=== PATIENT | male | born 1945 | race Caucasian/White ===

== ENCOUNTER 2021-08-16 04:44 | Observation (INO) | payer MEDICARE ==
[2021-08-16 04:51] VITALS: RESP 18
[2021-08-16 05:12] LABS: Basophils % (A) 0 %; Eosinophils # (A) 0.1 k/uL (0-0.7); Eosinophils % (A) 1 %; HCT 41.2 % (39.0-53.0); HGB 13.8 gm/dL (13.0-17.5); Lymphocytes # (A) 1.2 k/uL (1.0-4.8); Lymphocytes % (A) 12 %; MCH 31.2 pg (25.0-35.0); MCHC 33.6 g/dL (31.0-37.0); MCV 92.9 fL (80.0-100.0); Mean Platelet Volume 7.1; Monocytes # (A) 0.6 k/uL (0-1.0); Monocytes % (A) 6 %; Neutrophils # (A) 8.1 k/uL (1.3-7.7); Neutrophils % (A) 78 %; Platelet Count 269 k/uL (150-450); RBC 4.44 m/uL (4.30-5.90); RDW 12.8 % (11.5-15.5); WBC 10.4 k/uL (3.8-10.6)
[2021-08-16 05:23] LABS: Partial Thromboplastin Time 23.9 sec (22.0-30.0); Prothrombin Time 10.4 sec (9.0-12.0)
[2021-08-16 05:34] LABS: ALT 20 U/L (4-49); African American GFR (CKD) >90 (>60 ml/min/1.73 sqM); Albumin 3.9 g/dL (3.5-5.0); Anion Gap 9 mmol/L; Blood Urea Nitrogen 22 mg/dL (9-20); Calcium 9.3 mg/dL (8.4-10.2); Carbon Dioxide 24 mmol/L (22-30); Chloride 106 mmol/L (98-107); Glucose 155 mg/dL (74-99); Lipase 482 U/L (23-300); Non-African American GFR(CKD) 84 (>60 ml/min/1.73 sqM); Sodium 139 mmol/L (137-145); Total Bilirubin 0.7 mg/dL (0.2-1.3); Total Protein 6.2 g/dL (6.3-8.2)
[2021-08-16 05:47] LABS: Potassium 4.4 mmol/L (3.5-5.1)
[2021-08-16 05:48] LABS: AST 24 U/L (17-59); Alkaline Phosphatase 42 U/L (38-126)
--- NOTE | 2021-08-16 05:51 | ED ---
Chest Pain HPI - General Chief Complaint: Chest Pain Stated Complaint: Chest Pain Time Seen by Provider: 08/16/21 04:53 Source: patient, RN notes reviewed, old records reviewed Mode of arrival: ambulatory Limitations: no limitations - History of Present Illness Initial Comments: This is a 75-year-old male to the emergency department for evaluation. Patient presents today for chest pain left-sided chest pain left-sided back pain. Patient has no fevers no cough or congestion. Patient does have anterior central chest pain left-sided jaw pain pain with a did drop patient awoke with symptoms today. Patient did have a AR and stent placed about 5-6 months ago. Has had no issues since with no chest pain patient is currently still taking Plavix. [place] fine before bed last night no recent fatigue or illness MD Complaint: chest pain -: hour(s) Onset: during rest, awoke with symptoms Pain Location: substernal, left chest Pain Radiation: back, jaw/teeth Severity: moderate Severity scale (1-10): 6 Quality: tightness, sharp Consistency: intermittent, now resolved Improves With: nothing Worsens With: nothing Context: other (stents 5 months ago) Anginal Symptoms: nausea Other Symptoms: other (none) Treatments Prior to Arrival: none - Related Data Allergies Allergy/AdvReac Type Severity Reaction Status Date / Time No Known Allergies Allergy Verified 08/16/21 04:51 Review of Systems ROS Statement: Those systems with pertinent positive or pertinent negative responses have been documented in the HPI. ROS Other: All systems not noted in ROS Statement are negative. EKG Findings - EKG Comments: EKG Findings:: EKG shows sinus rhythm 71 AL 140 QRS 78 QTc 410. Repeat. EKG shows sinus rhythm 67 AL 138 QRS 78 QTc 420 Past Medical History Past Medical History: Diabetes Mellitus, Hypertension, Myocardial Infarction (AR) History of Any Multi-Drug Resistant Organisms: None Reported Past Surgical History: Heart Catheterization With Stent, Orthopedic Surgery Past Psychological History: No Psychological Hx Reported Smoking Status: Never smoker Past Alcohol Use History: None Reported Past Drug Use History: None Reported General Exam Limitations: no limitations General appearance: alert, in no apparent distress Head exam: Present: atraumatic, normocephalic, normal inspection Eye exam: Present: normal appearance, PERRL, EOMI. Absent: scleral icterus, conjunctival injection, periorbital swelling ENT exam: Present: normal exam, mucous membranes moist Neck exam: Present: normal inspection. Absent: tenderness, meningismus, lymphadenopathy Respiratory exam: Present: normal lung sounds bilaterally. Absent: respiratory distress, wheezes, rales, rhonchi, stridor Cardiovascular Exam: Present: regular rate, normal rhythm, normal heart sounds. Absent: systolic murmur, diastolic murmur, rubs, gallop, clicks GI/Abdominal exam: Present: soft, normal bowel sounds. Absent: distended, tenderness, guarding, rebound, rigid Extremities exam: Present: normal inspection, full ROM, normal capillary refill. Absent: tenderness, pedal edema, joint swelling, calf tenderness Back exam: Present: normal inspection Neurological exam: Present: alert, oriented X3, CN II-XII intact Psychiatric exam: Present: normal affect, normal mood Skin exam: Present: warm, dry, intact, normal color. Absent: rash Course Vital Signs 08/16/21 08/16/21 04:49 05:03 Temperature 97.8 F Pulse Rate 75 72 Respiratory 18 18 Rate Blood Pressure 162/71 169/85 O2 Sat by Pulse 98 97 Oximetry - Reevaluation(s) Reevaluation #1: 08/16/21 05:51 medical record is reviewed Reevaluation #2: 08/16/21 06:04 Patient still has some occasional symptoms here in the emergency department Reevaluation #3: 08/16/21 06:05 Patient is informed of results and questions have been answered - Consultations Consultation #1: Spoke with Dr. Mahan who will admit this patient Chest Pain MDM - MDM 75 male to the emergency department admitted for chest pain, chest pain observation with history of recent AR and stent placement. Patient be admitted for cardiac observation Critical Care Time Critical Care Time: Yes Total Critical Care Time: 31 Disposition Clinical Impression: Chest pain, ACS (acute coronary syndrome) Disposition: ADMITTED IP TO THIS HOSP Condition: Fair Is patient prescribed a controlled substance at d/c from ED?: No Referrals: Loyd Daley MD [Primary Care Provider] - 1-2 days
--- NOTE | 2021-08-16 05:53 | XR ---
EXAM: XR Chest, 2 Views CLINICAL HISTORY: ITS.REASON XR Reason: Chest Pain TECHNIQUE: Frontal and lateral views of the chest. COMPARISON: No relevant prior studies available. FINDINGS: Lungs: Unremarkable. No consolidation. Pleural space: Unremarkable. No pneumothorax. Heart: Unremarkable. No cardiomegaly. Mediastinum: Unremarkable. Bones/joints: Degenerative changes of the thoracic spine. IMPRESSION: No evidence of acute cardiopulmonary disease.
[2021-08-16] MEDS ORDERED: HEPARIN SODIUM 1,000 UN/ML (10ML VL) IV ONE (06:01)
[2021-08-16] MEDS ORDERED: MORPHINE SULFATE 4 MG/ML SYRINGE IV PRN (06:01)
[2021-08-16] MEDS ORDERED: ASPIRIN 81 MG PO STA (06:01)
[2021-08-16] MEDS ORDERED: NITROGLYCERIN SL TABS 0.4 MG TAB SUBLINGUAL PRN (06:01)
[2021-08-16] MEDS ORDERED: HEPARIN SOD,PORK IN 0.45% NACL 25,000 UNIT in 0.45% NACL 1 250ML.BAG IV SCH (06:15)
[2021-08-16] MEDS ORDERED: lisinopriL 20 MG TAB PO SCH (09:00)
[2021-08-16] MEDS ORDERED: CLOPIDOGREL 75 MG TAB PO SCH (09:00)
[2021-08-16] MEDS ORDERED: amLODIPine 5 MG TAB PO SCH (09:00)
[2021-08-16] MEDS ORDERED: carvediloL 6.25 MG TAB PO SCH (09:00)
[2021-08-16 09:56] VITALS: BP 156/62; PULSE 77; TEMP 98.1
--- NOTE | 2021-08-16 10:22 | ECHOF ---
Referral Reason:cp MEASUREMENTS -------- HEIGHT: 170.2 cm WEIGHT: 74.8 kg BP: RVIDd: 3.7 cm (< 3.3) IVSd: 1.3 cm (0.6 - 1.1) LVIDd: 3.9 cm (3.9 - 5.3) LVPWd: 1.2 cm (0.6 - 1.1) IVSs: 1.8 cm LVIDs: 2.6 cm LVPWs: 1.8 cm LA Diam: 3.8 cm (2.7 - 3.8) LAESV Index (A-L): 27.63 ml/m Ao Diam: 3.1 cm (2.0 - 3.7) AV Cusp: 1.7 cm (1.5 - 2.6) MV EXCURSION: 12.108 mm (> 18.000) MV EF SLOPE: 44 mm/s (70 - 150) EPSS: 0.6 cm MV E Ok: 0.96 m/s MV DecT: 237 ms MV A Ok: 1.12 m/s MV E/A Ratio: 0.86 RAP: 5.00 mmHg RVSP: 24.85 mmHg FINDINGS -------- Sinus rhythm. This was a technically adequate study. The left ventricular size is normal. There is mild concentric left ventricular hypertrophy. Overa ll left ventricular systolic function is normal with, an EF between 60 - 65 %. The right ventricle is mildly enlarged. Normal LA size by volume 22+/-6 ml/m2. The right atrium is normal in size. Interatrial and interventricular septum intact. There is mild aortic valve sclerosis. There is trace mitral regurgitation. Mild tricuspid regurgitation present. Right ventricular systolic pressure is normal at < 35 mmHg. The pulmonic valve is normal. The aortic root size is normal. Normal inferior vena cava with normal inspiratory collapse consistent with estimated right atrial pre ssure of 5 mmHg. There is no pericardial effusion. CONCLUSIONS -------- 1. The left ventricular size is normal. 2. There is mild concentric left ventricular hypertrophy. 3. Overall left ventricular systolic function is normal with, an EF between 60 - 65 %. 4. The right ventricle is mildly enlarged. 5. There is mild aortic valve sclerosis. 6. There is trace mitral regurgitation. 7. Mild tricuspid regurgitation present. 8. There is no pericardial effusion. [employer]: AGUEDA Viramontes
[2021-08-16 11:06] LABS: Glucose,Whole Blood 142 mg/dL (75-99)
--- NOTE | 2021-08-16 11:53 | P.CRDCN ---
History of Present Illness Consult date: 08/16/21 History of present illness: HISTORY OF PRESENT ILLNESS: This is a 75-year-old male with a past medical history significant for hypertension, hyperlipidemia, diabetes, and coronary artery disease. Patient states he had 3 stents placed in [place] in April 2021. Patient follows in the office with Dr. Morris. We have been asked to see the patient in consultation for this chest pain. Patient examined at the bedside. Patient states he woke up this morning with chest pain around 1 AM. He states that he was in the middle of his chest. He also reports some discomfort in his neck. He states the pain was worse when he took a deep breath. He also reported some mild discomfort with chest palpation however that has resolved. He also reports having a sore throat this morning which he thought was unusual. Patient states his symptoms do not feel like his prior CT last year. At the time of my examination, the patient denies chest pain or pressure. He denies shortness of breath. EKG reveals sinus mechanism with nonspecific ST-T wave changes. No previous EKG available for comparison Chest xray negative for acute process Laboratory data: WBC 10.4. Hemoglobin 13.8. Platelet count 269. D-dimer 0.37. Sodium 139. Potassium 4.4. BUN 22. Creatinine 0.5. Troponin negative 2. ProBNP 205. Current home cardiac medications include aspirin 81 mg daily, lisinopril 20 mg daily, carvedilol 6.25 mg twice a day, Plavix 75 mg daily, amlodipine 5 mg daily, and atorvastatin 80 mg at night Echocardiogram completed revealing ejection fraction 60-65%, trace mitral regurgitation and mild tricuspid regurgitation Patient underwent a stress test in May 2021 at cardiology office which was negative for ischemia at 80% of his maximum heart rate. Patient did not reach his target heart rate. REVIEW OF SYSTEMS: At the time of my exam: CONSTITUTIONAL: Denies fever or chills. HEENT: Denies blurred vision, vision changes, or eye pain. Denies hemoptysis CARDIOVASCULAR: Denies chest pain. Denies orthopnea. Denies PND. Denies palpitations RESPIRATORY: Denies shortness of breath. GASTROINTESTINAL: Denies abdominal pain. Denies nausea or vomiting. HEMATOLOGIC: Denies bleeding disorders. GENITOURINARY: Denies any blood in urine. SKIN: Denies pruitis. Denies rash. PHYSICAL EXAM: VITAL SIGNS: Reviewed. GENERAL: Well-developed in no acute distress. HEENT: Head is normocephalic. Pupils are equal, round. Sclerae anicteric. Mucous membranes of the mouth are moist. Neck supple. No JVD or thyromegaly LUNGS: Respirations even and unlabored. Lungs essentially clear to auscultation bilaterally. HEART: Regular rate and rhythm. S1 and S2 heard. ABDOMEN: Soft. Nondistended. Nontender. EXTREMITIES: Normal range of motion. No clubbing or cyanosis. Peripheral pulses intact. No lower extremity edema NEUROLOGIC: Awake and alert. Oriented x 3. ASSESSMENT: Chest pain, atypical, pleuritic, troponin negative 2 Coronary artery disease with previous stenting, April 2021 in [place], exact details unknown Hypertension Hyperlipidemia Diabetes PLAN: An acute coronary event has been ruled out 2D echo obtained and reviewed Discontinue IV heparin Resume home cardiac medications Patient may be discharged home today and follow up with Dr. Morris Nurse practitioner note has been reviewed by physician. Signing provider agrees with the documented findings, assessment, and plan of care. Past Medical History Past Medical History: Diabetes Mellitus, Hypertension, Myocardial Infarction (CT) Last Myocardial Infarction Date:: may 05 2021 History of Any Multi-Drug Resistant Organisms: None Reported Past Surgical History: Heart Catheterization With Stent, Orthopedic Surgery Date of Last Stent Placement:: may 05 2021 Past Psychological History: No Psychological Hx Reported Smoking Status: Never smoker Past Alcohol Use History: None Reported Past Drug Use History: None Reported Medications and Allergies Home Medications Medication Instructions Recorded Confirmed Type 5Hydroxytryptophan(Oxitriptan) 200 mg PO DAILY 08/16/21 08/16/21 History [5-Htp] Ascorbic Acid [Vitamin C] 500 mg PO DAILY 08/16/21 08/16/21 History Aspirin EC [Ecotrin Low Dose] 81 mg PO DAILY 08/16/21 08/16/21 History Atorvastatin [Lipitor] 80 mg PO HS 08/16/21 08/16/21 History Biotin 5 mg PO DAILY 08/16/21 08/16/21 History Calcium Carb/Mag Ox/Zinc Sulf 1 tab PO DAILY 08/16/21 08/16/21 History [Tnr-Mde-Gnzv 334-134-5 mg Tab] Cholecalciferol [Vitamin D3 (125 250 mcg PO DAILY 08/16/21 08/16/21 History Mcg = 5000 Iu)] Clopidogrel [Plavix] 75 mg PO DAILY 08/16/21 08/16/21 History Cyanocobalamin (Vitamin B-12) 1,000 mcg PO DAILY 08/16/21 08/16/21 History [Vitamin B-12] Glucosamine-Chondr 500-400Mg 2 tab PO DAILY 08/16/21 08/16/21 History Krill Oil 500 mg PO DAILY 08/16/21 08/16/21 History Melatonin 5 mg PO HS 08/16/21 08/16/21 History Montelukast [Singulair] 10 mg PO HS 08/16/21 08/16/21 History Multivitamins, Thera [Multivitamin 1 tab PO DAILY 08/16/21 08/16/21 History (formulary)] [place] 3-6-9 1 cap PO DAILY 08/16/21 08/16/21 History Pumpkin Seed Oil 1 tab PO HS 08/16/21 08/16/21 History Vit C/E/Zn/Coppr/Lutein/Zeaxan 1 cap PO DAILY 08/16/21 08/16/21 History [Preservision Areds 2 Softgel] Vitamin B Complex 1 cap PO DAILY 08/16/21 08/16/21 History Zinc 50 mg PO DAILY 08/16/21 08/16/21 History amLODIPine [Norvasc] 5 mg PO DAILY 08/16/21 08/16/21 History carvediloL [Coreg] 6.25 mg PO BID 08/16/21 08/16/21 History lisinopriL [Prinivil] 20 mg PO DAILY 08/16/21 08/16/21 History metFORMIN HCL ER [Glucophage XR] 1,000 mg PO BID 08/16/21 08/16/21 History Allergies Allergy/AdvReac Type Severity Reaction Status Date / Time No Known Allergies Allergy Verified 08/16/21 06:39 Physical Exam Vitals: Vital Signs Temp Pulse Pulse Resp BP BP Pulse Ox 08/16/21 08:48 98.1 F 77 18 156/62 96 08/16/21 06:33 74 18 163/81 96 08/16/21 05:03 72 18 169/85 97 08/16/21 04:49 97.8 F 75 18 162/71 98 Intake and Output 08/15/21 08/16/21 08/16/21 22:59 06:59 14:59 Other: Weight 74.843 kg Results 08/16/21 05:05 08/16/21 04:54 Cardiac Enzymes 08/16/21 08/16/21 08/16/21 Range/Units 04:54 04:54 07:54 AST 24 (17-59) U/L Troponin I <0.012 <0.012 (0.000-0.034) ng/mL Coagulation 08/16/21 Range/Units 04:54 PT 10.4 (9.0-12.0) sec APTT 23.9 (22.0-30.0) sec CBC 08/16/21 Range/Units 05:05 WBC 10.4 (3.8-10.6) k/uL RBC 4.44 (4.30-5.90) m/uL Hgb 13.8 (13.0-17.5) gm/dL Hct 41.2 (39.0-53.0) % Plt Count 269 (150-450) k/uL Comprehensive Metabolic Panel 08/16/21 Range/Units 04:54 Sodium 139 (137-145) mmol/L Potassium 4.4 (3.5-5.1) mmol/L Chloride 106 (98-107) mmol/L Carbon Dioxide 24 (22-30) mmol/L BUN 22 H (9-20) mg/dL Creatinine 0.85 (0.66-1.25) mg/dL Glucose 155 H (74-99) mg/dL Calcium 9.3 (8.4-10.2) mg/dL AST 24 (17-59) U/L ALT 20 (4-49) U/L Alkaline Phosphatase 42 (38-126) U/L Total Protein 6.2 L (6.3-8.2) g/dL Albumin 3.9 (3.5-5.0) g/dL Current Medications Generic Name Dose Route Start Last Admin Trade Name Freq PRN Reason Stop Dose Admin Amlodipine Besylate 5 mg 08/16/21 09:00 08/16/21 09:38 Amlodipine 5 Mg Tab PO 5 mg DAILY [facility] Administration Aspirin 81 mg 08/17/21 09:00 Aspirin 81 Mg PO DAILY [facility] Atorvastatin Calcium 80 mg 08/16/21 21:00 Atorvastatin 80 Mg Tab PO [facility] Carvedilol 6.25 mg 08/16/21 09:00 08/16/21 09:38 Carvedilol 6.25 Mg Tab PO 6.25 mg AC-BID [facility] Administration Clopidogrel Bisulfate 75 mg 08/16/21 09:00 08/16/21 09:38 Clopidogrel 75 Mg Tab PO 75 mg DAILY [facility] Administration Insulin Aspart 0 unit 08/16/21 12:30 Insulin Aspart (Novolog) 100 Unit/Ml Vial SQ ACHS [facility] Protocol Lisinopril 20 mg 08/16/21 09:00 08/16/21 09:38 Lisinopril 20 Mg Tab PO 20 mg DAILY [facility] Administration Melatonin 5 mg 08/16/21 21:00 Melatonin 5 Mg Tablet PO HS [facility] Montelukast Sodium 10 mg 08/16/21 21:00 Montelukast 10 Mg Tab PO HS [facility] Morphine Sulfate 4 mg 08/16/21 06:01 Morphine Sulfate 4 Mg/Ml Syringe IV Q4HR PRN Chest Pain Multivitamins/Minerals 1 each 08/17/21 09:00 Vit A,C & S-Fhhxpx-Spxwrljq 1 Each Tab PO DAILY [facility] Nitroglycerin 0.4 mg 08/16/21 06:01 Nitroglycerin Sl Tabs 0.4 Mg Tab SUBLINGUAL Q5M PRN Chest Pain Intake and Output 08/15/21 08/16/21 08/16/21 22:59 06:59 14:59 Other: Weight 74.843 kg 08/16/21 05:05 08/16/21 04:54
[2021-08-16] MEDS ORDERED: INSULIN ASPART (NovoLOG) 100 UNIT/ML VIAL SQ SCH (12:30)
--- NOTE | 2021-08-16 13:42 | P.HPIM ---
History of Present Illness H&P Date: 08/16/21 HISTORY AND PHYSICAL AND DISCHARGE SUMMARY: HISTORY OF PRESENT ILLNESS This is a 75-year-old male patient of Dr. Daley with past medical history of coronary artery disease with previous stent and VT, hyperlipidemia, hypertension, diabetes mellitus type 2, seasonal ALLERGIES. In April 2021, patient was diagnosed with a myocardial infarction and had 3 stents placed in [place] while he was visiting his daughter. He has subsequently followed up with Dr. Raquel Morris in the office. Patient presented to [facility] emergency center with left-sided chest pain that started about 1 AM while he was sleeping. When he woke up in the morning he was feeling a little sore throat and use a throat lozenge or enterococcus zinc and that sore throat went away. He denies any history of GERD and then even before he had lasagna for dinner and at 4 PM he al so drank some fast for the first time. No cough or congestion. Chest pain is reproducible and is worse when laying down. Chest pain improves when he sitting or standing. Patient was afebrile, heart rate 75, blood pressure 162/71, pulse ox 90% on room air. EKG was a sinus rhythm with nonspecific ST changes. CBC was unremarkable. D-dimer 0.37. Electrolytes normal. BUN 22 and creatinine 0.85. Blood sugar 155. Troponins negative on 2 draws. Liver function tests were normal. Magnesium 2.0, potassium 4.4. ProBNP 205. Lipase 482, rotavirus PCR not detected. Chest x-ray reveals no acute cardio pulmonary disease. Patient was started on heparin drip, patient was seen by cardiology and rec ommended echo, cleared for discharge home. Patient will be discharged home today in stable condition. Echocardiogram reveals mild concentric left ventricular hypertrophy, EF 60-65%, trace mitral regurgitation, mild aortic valve sclerosis. Mild tricuspid regurgitation. REVIEW OF SYSTEMS Constitutional: No fever, no chills, no night sweats. No weight change. No weakness, fatigue or lethargy. No daytime sleepiness. EENT: No headache. No blurred vision or double vision, no loss of vision. No loss of Hearing, no ringing in the ears, no dizziness. No nasal drainage or congestion. No epistaxis. No sore throat. Lungs: No shortness of breath, cough, no sputum production. No wheezing. Cardiovascular: Reports chest pain, no lower extremity edema. No palpitations. No paroxysmal nocturnal dyspnea. No orthopnea. No lightheadedness or dizziness. No syncopal episodes. Abdominal: No abdominal pain. No nausea, vomiting. No diarrhea. No constipation. No bloody or tarry stools. No loss of appetite. Genitourinary: No dysuria, increased frequency, urgency. No urinary retention. Musculoskeletal: No myalgias. No muscle weakness, no gait dysfunction, no fr equent falls. No back pain. No neck pain. Integumentary: No wounds, no lesions. No rash or pruritus. No unusual bruising. No change in hair or nails. Neurologic: No aphasia. No facial droop. No change in mentation. No head injury. No headache. No paralysis. No paresthesia. Psychiatric: No depression. No anxiety. No mood swings. Endocrine: No abnormal blood sugars. No weight change. No excessive sweating or thirst. No cold intolerance. SOCIAL HISTORY Patient is a lifelong nonsmoker, no alcohol abuse, marijuana use or illicit drug use. He lives at home with his . FAMILY HISTORY Mother is alive at age 98 with history of diabetes and hypertension, father at age 70 from aneursym with history of CAD and CABG. He has one sister with possible DM. Patient does not have brothers. He has one daughter with historyof brain aneurysm and kidney stones. He has 2 sons with no major medical problems. PHYSICAL EXAMINATION Gen: This is a 75-year-old male. He is resting in bed appears to be comfortable and in no acute distress. HEENT: Head is atraumatic, normocephalic. Pupils equal, round. Sclerae is anicteric. NECK: Supple. No JVD. No lymphadenopathy. No thyromegaly. LUNGS: Clear to auscultation. No wheezes or rhonchi. No intercostal retractions. Has a chest wall tenderness. HEART: Regular rate and rhythm. No murmur. ABDOMEN: Soft. Bowel sounds are present. No masses. No tenderness. EXTREMITIES: No pedal edema. No calf tenderness. NEUROLOGICAL: Patient is awake, alert and oriented x3. Cranial nerves 2 through 12 are grossly intact. ASSESSMENT AND PLAN 1. Chest pain with negative troponins, possible gastroesophageal reflux disease, possible bronchitis. Cardiology consult appreciated. Echocardiogram as above. Continue aspirin 81 mg daily, atorvastatin 80 mg at bedtime, Plavix 75 mg daily. 2. Hypertension. Continue lisinopril 20 mg daily. 3. Hyperlipidemia. Continue atorvastatin. 4. Previous myocardial infarction and 3 stent placement in April 2021. 5. Diabetes mellitus type 2. Hold metformin. Patient will be placed on NovoL og scale before meals and at bedtime. 6. COVID-19 testing negative. Patient has been hospitalized during a pandemic. Patient placed as observation status. DISCHARGE PLAN home. Discharge Medication List 5Hydroxytryptophan(Oxitriptan) [5-Htp] 200 mg PO DAILY 08/16/21 [History] Ascorbic Acid [Vitamin C] 500 mg PO DAILY 08/16/21 [History] Aspirin EC [Ecotrin Low Dose] 81 mg PO DAILY 08/16/21 [History] Atorvastatin [Lipitor] 80 mg PO HS 08/16/21 [History] Biotin 5 mg PO DAILY 08/16/21 [History] Calcium Carb/Mag Ox/Zinc Sulf [Esg-Kig-Ngqg 334-134-5 mg Tab] 1 tab PO DAILY 08/16/21 [History] Cholecalciferol [Vitamin D3 (125 Mcg = 5000 Iu)] 250 mcg PO DAILY 08/16/21 [History] Clopidogrel [Plavix] 75 mg PO DAILY 08/16/21 [History] Cyanocobalamin (Vitamin B-12) [Vitamin B-12] 1,000 mcg PO DAILY 08/16/21 [History] Glucosamine-Chondr 500-400Mg 2 tab PO DAILY 08/16/21 [History] Krill Oil 500 mg PO DAILY 08/16/21 [History] Melatonin 5 mg PO HS 08/16/21 [History] Montelukast [Singulair] 10 mg PO HS 08/16/21 [History] Multivitamins, Thera [Multivitamin (formulary)] 1 tab PO DAILY 08/16/21 [History] Britton 3-6-9 1 cap PO DAILY 08/16/21 [History] Pantoprazole [Protonix] 40 mg PO HS #30 tab 08/16/21 [Rx] Pumpkin Seed Oil 1 tab PO HS 08/16/21 [History] Vit C/E/Zn/Coppr/Lutein/Zeaxan [Preservision Areds 2 Softgel] 1 cap PO DAILY 08/16/21 [History] Vitamin B Complex 1 cap PO DAILY 08/16/21 [History] Zinc 50 mg PO DAILY 08/16/21 [History] amLODIPine [Norvasc] 5 mg PO DAILY 08/16/21 [History] carvediloL [Coreg] 6.25 mg PO BID 08/16/21 [History] lisinopriL [Prinivil] 20 mg PO DAILY 08/16/21 [History] metFORMIN HCL ER [Glucophage XR] 1,000 mg PO BID 08/16/21 [History] predniSONE [Deltasone] 40 mg PO DAILY #14 tab 08/16/21 [Rx] Greater than 35 minutes was utilized and coordinating patient's discharge. Impression and plan of care have been directed as dictated by the signing physician. Kellen Grant nurse practitioner acting as scribe for signing physician. Past Medical History Past Medical History: Diabetes Mellitus, Hypertension, Myocardial Infarction (VT) History of Any Multi-Drug Resistant Organisms: None Reported Past Surgical History: Heart Catheterization With Stent, Orthopedic Surgery Past Psychological History: No Psychological Hx Reported Smoking Status: Never smoker Past Alcohol Use History: None Reported Past Drug Use History: None Reported Medications and Allergies Home Medications Medication Instructions Recorded Confirmed Type 5Hydroxytryptophan(Oxitriptan) 200 mg PO DAILY 08/16/21 08/16/21 History [5-Htp] Ascorbic Acid [Vitamin C] 500 mg PO DAILY 08/16/21 08/16/21 History Aspirin EC [Ecotrin Low Dose] 81 mg PO DAILY 08/16/21 08/16/21 History Atorvastatin [Lipitor] 80 mg PO HS 08/16/21 08/16/21 History Biotin 5 mg PO DAILY 08/16/21 08/16/21 History Calcium Carb/Mag Ox/Zinc Sulf 1 tab PO DAILY 08/16/21 08/16/21 History [Rqp-Aqb-Ojko 334-134-5 mg Tab] Cholecalciferol [Vitamin D3 (125 250 mcg PO DAILY 08/16/21 08/16/21 History Mcg = 5000 Iu)] Clopidogrel [Plavix] 75 mg PO DAILY 08/16/21 08/16/21 History Cyanocobalamin (Vitamin B-12) 1,000 mcg PO DAILY 08/16/21 08/16/21 History [Vitamin B-12] Glucosamine-Chondr 500-400Mg 2 tab PO DAILY 08/16/21 08/16/21 History Krill Oil 500 mg PO DAILY 08/16/21 08/16/21 History Melatonin 5 mg PO HS 08/16/21 08/16/21 History Montelukast [Singulair] 10 mg PO HS 08/16/21 08/16/21 History Multivitamins, Thera [Multivitamin 1 tab PO DAILY 08/16/21 08/16/21 History (formulary)] Britton 3-6-9 1 cap PO DAILY 08/16/21 08/16/21 History Pantoprazole [Protonix] 40 mg PO HS #30 tab 08/16/21 Rx Pumpkin Seed Oil 1 tab PO HS 08/16/21 08/16/21 History Vit C/E/Zn/Coppr/Lutein/Zeaxan 1 cap PO DAILY 08/16/21 08/16/21 History [Preservision Areds 2 Softgel] Vitamin B Complex 1 cap PO DAILY 08/16/21 08/16/21 History Zinc 50 mg PO DAILY 08/16/21 08/16/21 History amLODIPine [Norvasc] 5 mg PO DAILY 08/16/21 08/16/21 History carvediloL [Coreg] 6.25 mg PO BID 08/16/21 08/16/21 History lisinopriL [Prinivil] 20 mg PO DAILY 08/16/21 08/16/21 History metFORMIN HCL ER [Glucophage XR] 1,000 mg PO BID 08/16/21 08/16/21 History predniSONE [Deltasone] 40 mg PO DAILY #14 tab 08/16/21 Rx Allergies Allergy/AdvReac Type Severity Reaction Status Date / Time No Known Allergies Allergy Verified 08/16/21 06:39 Physical Exam Vitals: Vital Signs Temp Pulse Resp BP Pulse Ox 08/16/21 06:33 74 18 163/81 96 08/16/21 05:03 72 18 169/85 97 08/16/21 04:49 97.8 F 75 18 162/71 98 Intake and Output 08/15/21 08/16/21 08/16/21 22:59 06:59 14:59 Other: Weight 74.843 kg Results CBC & Chem 7: 08/16/21 05:05 08/16/21 04:54 Labs: Abnormal Lab Results - Last 24 Hours (Table) 08/16/21 08/16/21 Range/Units 04:54 05:05 Neutrophils # 8.1 H (1.3-7.7) k/uL BUN 22 H (9-20) mg/dL Glucose 155 H (74-99) mg/dL Total Protein 6.2 L (6.3-8.2) g/dL Lipase 482 H (23-300) U/L
[2021-08-16] MEDS ORDERED: ATORVASTATIN 80 MG TAB PO SCH (21:00)
[2021-08-16] MEDS ORDERED: MELATONIN 5 MG TABLET PO SCH (21:00)
[2021-08-16] MEDS ORDERED: MONTELUKAST 10 MG TAB PO SCH (21:00)
[2021-08-17] MEDS ORDERED: ASPIRIN 81 MG PO SCH (09:00)
[2021-08-17] MEDS ORDERED: VIT A,C & E-LUTEIN-MINERALS 1 EACH TAB PO SCH (09:00)
[2021-08-17] MEDS ORDERED: ASPIRIN 325 MG TAB PO SCH (09:00)
== END 2021-08-16 12:38 | disposition home or self-care (01) ==
LOC: EC 04:44 → 6NMEDSUR 06:01
PROVIDERS: ADMIT Internal Medicine Geriatric Medicine; ATTEND Internal Medicine Geriatric Medicine
DX: R07.89 Other chest pain (principal); I11.9 Hypertensive heart disease without heart failure; I25.10 Atherosclerotic heart disease of native coronary artery without angina pectoris; I08.2 Rheumatic disorders of both aortic and tricuspid valves; J02.9 Acute pharyngitis, unspecified; R07.81 Pleurodynia; E11.9 Type 2 diabetes mellitus without complications; I25.2 Old myocardial infarction; E78.5 Hyperlipidemia, unspecified; J30.2 Other seasonal allergic rhinitis; Z79.02 Long term (current) use of antithrombotics/antiplatelets; Z79.82 Long term (current) use of aspirin; Z20.822 Contact with and (suspected) exposure to COVID-19; Z79.84 Long term (current) use of oral hypoglycemic drugs; Z79.899 Other long term (current) drug therapy; Z95.5 Presence of coronary angioplasty implant and graft; Z98.890 Other specified postprocedural states; Z83.3 Family history of diabetes mellitus; Z82.49 Family history of ischemic heart disease and other diseases of the circulatory system; Z84.1 Family history of disorders of kidney and ureter; R11.0 Nausea
CPT/HCPCS: 96374; 99291; 36415; 93005; 93306; 85379; 83880; 80053; 83690; 83735; 84484; 85025; 85610; 85730; 87635; 71046; G0378; J1644 ×2

== ENCOUNTER → 2024-03-02 | Outpatient (CLI) | payer MEDICARE | END | disposition home or self-care (01) | LOC: LABPRL 11:45 | PROVIDERS: ATTEND Nurse Practitioner Family | DX: I10 Essential (primary) hypertension (principal); E11.9 Type 2 diabetes mellitus without complications | CPT/HCPCS: 80053; 83036 ==

== ENCOUNTER → 2024-10-07 | Outpatient (CLI) | payer MEDICARE ==
--- NOTE | 2024-10-07 10:43 | XR ---
EXAMINATION TYPE: XR Hip Complete LT DATE OF EXAM: 10/07/2024 10:20 AM COMPARISON: None CLINICAL INDICATION: Male, 78 years old with history of R52 pain; PHH, pain TECHNIQUE: XR Hip Complete LT; Frontal and lateral views FINDINGS: No evidence for acute process, joint dislocation or significant soft tissue swelling. Osteo phyte formation of the superior acetabulum of the hip. There is severe gvrk-gv-xgau joint space narro wing. Atherosclerosis of the arterial vascular. IMPRESSION: 1. No evidence for acute process. 2. Severe left hip osteoarthrosis. [facility], , 10/07/2024 10:41 AM
--- NOTE | 2024-10-07 10:49 | XR ---
EXAMINATION TYPE: XR knee complete LT DATE OF EXAM: 10/07/2024 10:20 AM COMPARISON: None CLINICAL INDICATION: Male, 78 years old with history of R52 pain; , pain TECHNIQUE: XR knee complete LT 3 views submitted. FINDINGS: No evidence of any acute osseous pathology, soft tissue swelling, or joint effusion is no harvey. Tricompartmental osteophyte formation involving the femoral condyles, tibial plateau and patella . Mild joint space narrowing. Atherosclerosis of the arterial vasculature. A fabella is present. Supe rior quadriceps patellar enthesophyte noted. IMPRESSION: 1. No acute osseous pathology. 2. Mild tricompartmental osteoarthritic changes. [facility], , 10/07/2024 10:47 AM
--- NOTE | 2024-10-07 10:50 | XR ---
EXAMINATION TYPE: XR lumbar spine 2 or 3V DATE OF EXAM: 10/07/2024 10:20 AM COMPARISON: None CLINICAL INDICATION: Male, 78 years old with history of R52 pain; , pain TECHNIQUE: XR lumbar spine 2 or 3V - Frontal, lateral and coned in L5-S1 lateral views of the spine. FINDINGS: No evidence of any acute osseous pathology. No evidence of loss of vertebral body height i s seen. There is normal alignment of the lumbar vertebral bodies. Scattered disc space narrowing. Mul tilevel marginal osteophyte formation throughout the visualized spine. There is facet joint arthropat hy throughout the spine. Scattered at least mild neural foraminal stenosis with at least mild to mode rate at L5-S1. Osteoarthrosis of the spinous processes. IMPRESSION: 1. No acute fracture. 2. Moderate to severe multilevel disc degeneration. [facility], , 10/07/2024 10:48 AM
== END | disposition home or self-care (01) ==
LOC: RADXRMAIN 09:59
PROVIDERS: ATTEND Family Medicine
DX: M51.16 Intervertebral disc disorders with radiculopathy, lumbar region (principal); M16.12 Unilateral primary osteoarthritis, left hip; M17.12 Unilateral primary osteoarthritis, left knee; M47.26 Other spondylosis with radiculopathy, lumbar region
CPT/HCPCS: 72100; 73502

== ENCOUNTER → 2024-11-08 | Outpatient (CLI) | payer MEDICARE ==
[2024-11-08 11:02] LABS: ALT 17 U/L (10-49); AST 17 U/L (14-35); Chol/HDL Ratio 3.44 Ratio
== END | disposition home or self-care (01) ==
LOC: LABWHC1 07:12
PROVIDERS: ATTEND Internal Medicine Cardiovascular Disease
DX: E78.2 Mixed hyperlipidemia (principal)
CPT/HCPCS: 36415; 80061; 84450; 84460

== ENCOUNTER → 2024-12-03 | Outpatient (CLI) | payer MEDICARE ==
[2024-12-03 15:31] LABS: INR 0.98 sec (0.93-1.11); Prothrombin Time 11.2 sec (9.9-11.9)
[2024-12-03 16:02] LABS: Basophils # (A) 0.05 X 10*3/uL (0.00-0.10); Basophils % (A) 0.7 %; Eosinophils # (A) 0.09 X 10*3/uL (0.04-0.35); Eosinophils % (A) 1.3 %; HCT 45.3 % (39.6-50.0); HGB 14.8 g/dL (13.0-17.0); Lymphocytes # (A) 1.51 X 10*3/uL (0.90-5.00); Lymphocytes % (A) 22.2 %; MCH 30.3 pg (27.0-32.0); MCHC 32.7 g/dL (32.0-37.0); MCV 92.6 FL (80.0-97.0); Mean Platelet Volume 9.8 FL (9.5-12.2); Monocytes # (A) 0.64 X 10*3/uL (0.20-1.00); Monocytes % (A) 9.4 %; NRBC Per 100 WBC 0 X 10*3/uL (0.00-0.01); Neutrophils # (A) 4.49 X 10*3/uL (1.80-7.70); Platelet Count 304 X 10*3/uL (140-440); RBC 4.89 X 10*6/uL (4.40-5.60); RDW 12.3 % (11.5-14.5); WBC 6.81 X 10*3/uL (4.50-10.00)
[2024-12-03 17:07] LABS: Blood Urea Nitrogen 24.6 mg/dL (9.0-27.0); Carbon Dioxide 20.7 mmol/L (21.6-31.8); Chloride 106 mmol/L (96-109); Glucose 192 mg/dL (70-110); Potassium 4.6 mmol/L (3.5-5.5); Sodium 141 mmol/L (135-145)
== END | disposition home or self-care (01) ==
LOC: LABWHC1 08:20
PROVIDERS: ATTEND Orthopaedic Surgery
DX: Z01.812 Encounter for preprocedural laboratory examination (principal); M16.12 Unilateral primary osteoarthritis, left hip; Z22.322 Carrier or suspected carrier of Methicillin resistant Staphylococcus aureus
CPT/HCPCS: 36415; 80048; 85025; 85610; 87070

== ENCOUNTER 2024-12-13 05:39 | Day surgery (SDC) | payer MEDICARE ==
[2024-12-09 15:57] VITALS: BMI 28.1
--- NOTE | 2024-12-12 13:00 | HP ---
HISTORY AND PHYSICAL SURGERY: 12/13/2024. HISTORY OF PRESENT ILLNESS: Ean Esparza is an 79-year-old gentleman seen with symptomatic left hip osteoarthritis. We discussed options regarding treatment. He elected to proceed with direct anterior left total hip arthroplasty. Consents obtained. Cardiac clearance provided by Dr. Morris. PAST MEDICAL HISTORY: Iit-pgjvjyq-uveottkur diabetes, cardiovascular disease. SURGICAL HISTORY: Cardiac stent placement, cataract surgery. DAILY MEDICATIONS: 1. Amlodipine. 2. Aspirin. 3. Atorvastatin. 4. Carvedilol. 5. Glipizide. 6. Metformin. 7. Vitamins. ALLERGIES: None reported. SOCIAL HISTORY: Denies tobacco use. PHYSICAL EVALUATION OF LEFT KNEE: He has limited range of motion with severe pain, diffuse tenderness. Positive hip impingement sign. Straight-leg raise negative. Distal neurovascular exam is intact. IMAGING: Radiographs of left hip, severe osteoarthritic changes. IMPRESSION: 1. Left hip osteoarthritis. 2. Hypertension. 3. Hyperlipidemia. 4. Mid-nyxxrpa-uhxqceero diabetes. PLAN: Direct anterior left total hip arthroplasty. MMODL / IJN: [id number] /
[~2024-12-13 05:39] MED LIST: TRANEXAMIC 1,000 MG/100ML-NACL 1,000 MG in SALINE 1 100ML.BAG IVPB PRN
[2024-12-13] MEDS ORDERED: LIDOCAINE 1% (10MG/ML) FOR IV START INTRADERMA PRN (05:59)
[2024-12-13] MEDS: LACTATED RINGERS 1,000 ML IV SCH (06:40)
[2024-12-13] MEDS: IV FLUID CONTINUATION 1,000 ML IV ONE ×2 (06:40→11:03)
[2024-12-13] MEDS: ONDANSETRON 4 MG/2 ML VIAL IVP ONE (06:58)
[2024-12-13] MEDS: ACETAMINOPHEN TAB 500 MG TAB PO PRN (06:58)
[2024-12-13] MEDS: MELOXICAM 7.5 MG TAB PO PRN (06:58)
[2024-12-13] MEDS: MIDAZOLAM 2 MG/2 ML VIAL IV ONE (07:06)
[2024-12-13 07:24] LABS: Glucose,Whole Blood 170 mg/dL (70-110)
[2024-12-13] MEDS ORDERED: ePHEDrine 50 MG/ML 1 ML VIAL ONE (07:26)
[2024-12-13] MEDS ORDERED: TRANEXAMIC 1,000 MG/100ML-NACL PREMIX BAG ONE (07:26)
[2024-12-13] MEDS ORDERED: PROPOFOL 10 MG/ML 20 ML VIAL IV ONE (07:26)
[2024-12-13] MEDS ORDERED: PHENYLEPHRINE-0.9% NACL SYG 1,000 MCG/10 ML SYRINGE ONE (07:26)
[2024-12-13] MEDS ORDERED: MIDAZOLAM 2 MG/2 ML VIAL ONE (07:26)
[2024-12-13] MEDS: ceFAZolin 2 GM in DEXTROSE 5% IN WATER 50 ML IVPB PRN (07:30)
[2024-12-13] MEDS: ceFAZolin 1,000 MG in SODIUM CHLORIDE 0.9% 1,000 ML IRRIGATION ONE (08:09)
--- NOTE | 2024-12-13 08:42 | P.ANPRN ---
Procedure Note - Anesthesia - Nerve Block Performed Left Royal Single Time Out Performed: Yes ([id number]) Date of Procedure: 12/13/24 Location of Patient: PreOp Indication: Acute Post-Operative Pain, Dx/Pain Location (Left hip), Requested by Surgeon Specifically requested for management of pain by DrKeanu: Yogi Silverio Sedation Type: Sedate with meaningful contact maintained Position: Supine Catheter: None Needle Types: Pajunk Needle Gauge: 21 (80 mm) Ultrasound used to visualize needle placement: Yes Ultrasound used to observe medication spread: Yes Injectate: 0.5% Ropivacaine (see comment for volume) (25 cc + 5ml of Saline) Blood Aspirated: No Pain Paresthesia on Injection Noted: No Resistance on Injection: Normal Image Stored and Saved: Yes Events: Uneventful and Well Tolerated
[2024-12-13] MEDS ORDERED: ONDANSETRON 4 MG/2 ML VIAL IVP PRN (09:27)
[2024-12-13] MEDS ORDERED: HYDROmorphone 0.5 MG/0.5 ML SYRINGE IVP PRN ×3 (09:27)
[2024-12-13] MEDS ORDERED: NALOXONE 0.4 MG/ML 1 ML VIAL IV PRN (09:27)
--- NOTE | 2024-12-13 09:27 | P.OP ---
Date of Procedure: 12/13/24 Preoperative Diagnosis: Left hip osteoarthritis Postoperative Diagnosis: Left hip osteoarthritis Procedure(s) Performed: Direct anterior left total hip arthroplasty Implants: 1. DePuy [place] 135 degree standard collared KA size 15 press-fit femoral stem 2. DePuy [place] 56 mm press-fit acetabular shell 3. DePuy [place] neutral polyethylene acetabular liner 36 mm ID 56 mm OD 4. DePuy metal femoral head 36 mm -2 Anesthesia: regional (Erector spinae block), spinal Surgeon: Yogi Silverio [employer] #1: Solo Julian Estimated Blood Loss (ml): 45 Pathology: none sent Condition: stable Disposition: PACU Indications for Procedure: 79-year-old gentleman seen with symptomatic left hip osteoarthritis. After having treatment options discussed, he elected to proceed with direct anterior left total hip arthroplasty. Operative Findings: See description of procedure Description of Procedure: The patient was taken to the operative suite. Patient underwent a spinal anesthetic by the department of anesthesia. Patient was then transferred to the [place] table. Patient was given preoperative IV antibiotics and TXA. Both lower extremities were placed in standard leg spars. The hip was then prepped and draped in the normal sterile orthopedic fashion. A standard anterior incision was made beginning 3 cm lateral and 1 cm distal to the ASIS extending 10 cm. Dissection was then carried down through the subcutaneous soft tissues down to the fascia overlying the tensor fascia elbert. An incision was now made through the fascia. Careful dissection was taken down exposing the tensor fascia elbetr muscle. A Cobra retractor was now placed along the medial femoral neck and a second one along the lateral femoral neck. The venous circumflex vessels were now identified, cauterized and clipped. We identified the anterior hip capsule. An incision was made through the hip capsule along the lateral border. I performed a partial anterior capsulectomy. Retractors were now placed around the femoral neck itself. A femoral neck cut was now made with a sagittal saw. It was completed with an osteotome at the lateral neck area. The femoral head was now removed without difficulty. The extremity was now rotated to 60 of external rotation. It was locked in position. Residual labrum was now debrided out. Serial reaming was performed of the acetabulum while Jerman LOVE assisted holding an anterior retractor for exposure. Once we reached the appropriate size and a trial was position and fit nicely. The appropriate size was now chosen opened and made available. It was introduced into the acetabulum without difficulty. The C-arm/fluoroscopy was now brought into the operative field. We made sure we had a true AP pelvic view. We now under direct C- arm/fluoroscopy introduced into the acetabular component with appropriate version and inclination. I held the cup in appropriate position well Jerman LOVE used a mallet to seat the acetabular component. I noted the component now to be well seated and stable. Acetabular cup introduce her was removed. The C-arm was pulled back. An appropriate liner was introduced and clicked into position. It was felt to be stable. At this point retractors were removed. The extremity was now placed into 140 external rotation with no traction. The leg was now dropped to the ground and adducted. Appropriate retractors were now positioned along the proximal femur. We also placed our femoral look into position. Additional capsular releasing was performed to gain access to the proximal femur. We now used a box osteotome. A canal finder was now utilized. Serial broaching was now performed with the assistance of Jerman LOVE tapping the broaches down with a mallet while held the broach in appropriate rotation and position. This was done until we reached the appropriate size with good overall rotational stability. Appropriate calcar planing was performed. A trial head/neck was placed into position. The hip was now reduced. The C- arm/fluoroscopy was brought back into the operative field. An AP pelvis was obtained demonstrating adequate leg length alignment. The trial components appeared adequately sized and positioned. The C-arm/fluoroscopy was pulled back. Retractors were repositioned and the hip was dislocated. The leg was again taken down to the ground and adducted. Appropriate retractors were repositioned as well as the femoral hook. All trial components were removed. The femoral implant was opened along with the femoral head. The femoral implant was introduced on the appropriate handle into our pre-broached area. I held the component position well Jerman LOVE used a mallet to seat the femoral component. The femoral component was now noted to be well seated and stable.. The femoral head was introduced with good positioning and fixation noted. Retractors were now removed. The hip was now reduced. There appeared be good positioning of the hip confirmed on intraoperative fluoroscopy. Spot films were obtained to document this. A second gram of TXA was given. The deep and superficial soft tissues were infiltrated with local analgesic. Bipolar cautery had been utilized intermittently through the procedure for hemostasis. The wound was irrigated copiously with pulse lavage mechanical irrigation. The fascia was repaired with Vicryl suture. The subcutaneous soft tissues were repaired in layers with Vicryl suture. The skin was approximated with pernio/Dermabond. Sterile dressings were applied. Patient was then awakened, transferred to a bed and taken to recovery in stable condition. Jerman LOVE assisted with the complex procedure.
--- NOTE | 2024-12-13 09:28 | FL ---
EXAMINATION TYPE: FL guidance operating room, XR Hip Limited LT DATE OF EXAM: 12/13/2024 CLINICAL INDICATION: Male, 79 years old with history of LEFT HIP OSTEOARTHRITIS M16.12, left hip pain . TECHNIQUE: Fluoroscopy. Intraoperative limited views left hip. COMPARISON: Left hip x-ray October 29, 2024. FINDINGS: Fluoroscopic guidance was provided during left hip replacement procedure performed by Dr. Silverio. A total of 11.4 seconds of fluoroscopic time was utilized during the procedure and 3 spot intraoperative images are acquired. Intraoperative images acquired show placement of metallic hardware from total left hip arthroplasty. This appears satisfactory in position on intraoperative images obtained. IMPRESSION: As Above. [facility], , 12/13/2024 9:26 AM
[2024-12-13] MEDS: HYDROmorphone 0.5 MG/0.5 ML SYRINGE IVP PRN (10:08)
[2024-12-13 14:05] LABS: Glucose,Whole Blood 187 mg/dL (70-110)
[2024-12-13] MEDS: SODIUM CHLORIDE 0.9% 1,000 ML IV SCH (14:50)
[2024-12-13] MEDS: ceFAZolin 2 GM in DEXTROSE 5% IN WATER 50 ML IVPB SCH (14:57)
[2024-12-13] MEDS ORDERED: DEXTROSE 50% SYRINGE 50 ML IVP PRN ×2 (15:07)
[2024-12-13 16:47] LABS: Glucose,Whole Blood 213 mg/dL (70-110)
[2024-12-13] MEDS: INSULIN LISPRO (HumaLOG) 100 UNIT/ML 10 mL VL SQ SCH (17:00)
[2024-12-13] MEDS: HYDROcodone/APAP 5-325MG 1 EACH TAB PO PRN (17:03)
[2024-12-13 21:09] LABS: Glucose,Whole Blood 243 mg/dL (70-110)
[2024-12-13] MEDS: MELATONIN 5 MG TABLET PO SCH (21:55)
[2024-12-13] MEDS: carvediloL 6.25 MG TAB PO SCH (21:55)
[2024-12-13] MEDS: SENNOSIDES-DOCUSATE SODIUM 1 EACH TAB PO SCH (21:55)
[2024-12-13] MEDS: MONTELUKAST 10 MG TAB PO SCH (21:55)
[2024-12-13] MEDS: ASPIRIN 81 MG PO SCH (21:55)
[2024-12-13] MEDS: HYDROcodone/APAP 7.5-325MG 1 EACH TAB PO PRN (23:47)
[2024-12-14 01:32] VITALS: RESP 16
[2024-12-14 06:23] LABS: Glucose,Whole Blood 171 mg/dL (70-110)
[2024-12-14 08:10] LABS: HCT 35.9 % (39.6-50.0); HGB 11.8 g/dL (13.0-17.0); MCH 30.3 pg (27.0-32.0); MCHC 32.9 g/dL (32.0-37.0); MCV 92.3 FL (80.0-97.0); Mean Platelet Volume 9.8 FL (9.5-12.2); NRBC Per 100 WBC 0 X 10*3/uL (0.00-0.01); Platelet Count 289 X 10*3/uL (140-440); RBC 3.89 X 10*6/uL (4.40-5.60); RDW 12.3 % (11.5-14.5); WBC 11.04 X 10*3/uL (4.50-10.00)
[2024-12-14 08:41] VITALS: BP 146/56; PULSE 73; TEMP 98.2
[2024-12-14] MEDS: glipiZIDE 5 MG TAB PO SCH (08:41)
[2024-12-14] MEDS: MULTIVITAMINS, THERA 1 EACH TAB PO SCH (08:41)
[2024-12-14] MEDS: FAMOTIDINE 20 MG TAB PO SCH (08:41)
[2024-12-14 08:54] LABS: Basophils # (A) 0.02 X 10*3/uL (0.00-0.10); Basophils % (A) 0.2 %; Eosinophils # (A) 0 X 10*3/uL (0.04-0.35); Eosinophils % (A) 0 %; Lymphocytes # (A) 1.29 X 10*3/uL (0.90-5.00); Lymphocytes % (A) 11.7 %; Monocytes # (A) 1.51 X 10*3/uL (0.20-1.00); Monocytes % (A) 13.7 %; Neutrophils # (A) 8.17 X 10*3/uL (1.80-7.70); Neutrophils % (A) 73.9 %
--- NOTE | 2024-12-14 12:14 | P.PN ---
Subjective Progress Note Date: 12/14/24 Principal diagnosis: Status post direct anterior left total hip arthroplasty Patient evaluated at bedside, his is also present. He is doing well with physical therapy. His pain is well-controlled. He denies headaches, lightheadedness, chest pain or shortness of breath Objective - Vital Signs Vital signs: Vital Signs Temp 98.2 F 12/14/24 07:14 Pulse 73 12/14/24 07:14 Resp 16 12/14/24 07:14 BP 146/56 12/14/24 07:14 Pulse Ox 93 L 12/14/24 07:14 FiO2 Intake & Output 12/13/24 12/14/24 12/14/24 18:59 06:59 18:59 Intake Total 851 400 Output Total 670 1200 Balance 181 -800 Weight 86 kg Intake: IV 851 Oral 400 Output: Urine 625 1200 Estimated Blood Loss 45 Other: Voiding Method Toilet - Exam Left lower extremity: Incision is clean, dry, and intact. The foam dressing is in good condition. There is minimal soft tissue swelling and ecchymosis surrounding the medial and lateral aspects of the incision. Calf is soft, no tenderness with palpation. Plantar flexion, dorsiflexion, EHL, FHL are intact. Sensory exam to light touch throughout the extremity is intact, dorsal pedis pulses 2+. - Labs CBC & Chem 7: 12/14/24 02:52 Labs: Abnormal Lab Results - Last 24 Hours (Table) 12/13/24 12/13/24 12/13/24 Range/Units 14:03 16:46 20:58 WBC (4.50-10.00) X 10*3/uL RBC (4.40-5.60) X 10*6/uL Hgb (13.0-17.0) g/dL Hct (39.6-50.0) % Immature Gran # (0.00-0.04) X 10*3/uL Neutrophils # (1.80-7.70) X 10*3/uL Monocytes # (0.20-1.00) X 10*3/uL Eosinophils # (0.04-0.35) X 10*3/uL POC Glucose (mg/dL) 187 H 213 H 243 H (70-110) mg/dL Hemoglobin A1c (<=6.0) % 12/14/24 12/14/2425 Range/Units 02:52 02:52 06:22 WBC 11.04 H (4.50-10.00) X 10*3/uL RBC 3.89 L (4.40-5.60) X 10*6/uL Hgb 11.8 L (13.0-17.0) g/dL Hct 35.9 L (39.6-50.0) % Immature Gran # 0.05 H (0.00-0.04) X 10*3/uL Neutrophils # 8.17 H (1.80-7.70) X 10*3/uL Monocytes # 1.51 H (0.20-1.00) X 10*3/uL Eosinophils # 0 L (0.04-0.35) X 10*3/uL POC Glucose (mg/dL) 171 H (70-110) mg/dL Hemoglobin A1c 6.9 H (<=6.0) % Assessment and Plan Assessment: Postoperative day #1 status post direct anterior left total hip arthroplasty Plan: Pain control, plan for discharge home on oral medication DVT prophylaxis, aspirin 81 mg twice a day Wound care instructions discussed Icing and elevating techniques discussed Weight-bear as tolerated with walker Medical recommendations appreciated Discharge planning: Patient stable for discharge home today Time with Patient: Less than 30
--- NOTE | 2024-12-14 12:17 | P.DS ---
Providers Date of admission: 12/13/2024 Expected date of discharge: 12/14/24 Attending physician: Yogi Silverio Consults: 12/13/24 09:27 Consult Physician Routine Consulting Provider: Greg Arora Reason/Comments: Medical management Do you want consulting provider notified?: Yes Primary care physician: Greg Arora Hospital Course: Date of admission: 12/13/2024 Date of discharge: 12/14/2024 Admission diagnosis: Status post direct anterior left total hip arthroplasty Discharge diagnosis: Same Attending physician: Dr. Silverio Surgical procedures: Direct anterior left total hip arthroplasty Brief history: Patient is a 79-year-old male with a history of progressive primary left hip osteoarthritis. At this point patient has failed conservative treatment measures and has opted to proceed with a elective direct anterior left total hip arthroplasty. Hospital course: Details of patient's surgery can be found in operative report. Patient tolerated the procedure well and was subsequently transported to orthopedic floor. Patient's orthopeidc and medical care was provided daily. Patient had daily laboratory tests performed for evaluation of overall blood co unts. Patient had daily physical therapy to include strengthening range of motion as well as education with walker ambulation. Patient was treated with aspirin for their postoperative DVT prophylaxis during their inpatient stay. Patient was noted to have a relatively uneventful postoperative course. Patient reported satisfactory pain control with oral pain medications by postoperative day 1. Patient showed satisfactory progress with physical therapy. Patient moved steadily through the program and had no difficulty meeting the goals by postoperative day 1. Given patient's otherwise satisfactory course and having met physical therapy goals, plan is to discharge patient home on postoperative day 1. Discharge condition/disposition: Patient will be discharged home in stable condition. Discharge medications: Instructions are given on resumption of patient's normal daily medications per primary care recommendation, in addition patient will be prescribed [place] 7.5 mg / 325 mg, aspirin 81 mg, senna S. Discharge instructions: 1. Wound care and infection precautions, keep incision dry and covered while showering, no lotions, creams, moisturizers. No soaking, tubs, pools, hottubs. Do not scrub over the incision. 2. Weight-bear as tolerated with walker / cane until follow-up. 3. Ice and elevate when necessary. Do not exceed 20 minutes per hour with ice pack. 4. Utilize compression sleeve until seen at first follow up appointment. 5. Visiting nursing care. 6. Home physical therapy \\. 7. Pain meds and anticoagulants per prescription. 8. Pain medication has potential to cause constipation. Increase oral fluid and fiber intake. Contact primary care provider if you have not had a bowel movement within 48 hours after discharge 9. No anti-inflammatory medication until discussed at first post operative visit, this including Motrin, Aleve, Mobic, Diclofenac. 10. Follow up in office at 2 weeks postop with Jerman Julian PA-C/Yonny Royal 11. Follow up with your primary care doctor 7-10 days after discharge. 12. Contact [facility] with any questions, . Procedures: Direct anterior left total hip arthroplasty Patient Condition at Discharge: Good Plan - Discharge Summary Discharge Rx Participant: No New Discharge Prescriptions: New HYDROcodone/APAP 7.5-325MG [[place] 7.5] 1 each PO Q6HR PRN #28 tab PRN Reason: Pain Sennosides/Docusate Sodium [Senna-S 8.6-50 mg Tablet] 2 each PO DAILY PRN #30 tablet PRN Reason: Constipation Aspirin [Adult Low Dose Aspirin EC] 81 mg PO BID #60 tab No Action metFORMIN HCL ER [Glucophage XR] 500 mg PO 1800 lisinopriL [Prinivil] 20 mg PO QAM Kennedy 3-6-9 1 cap PO DAILY Vit C/E/Zn/Coppr/Lutein/Zeaxan [Preservision Areds 2 Softgel] 1 cap PO BID Multivitamins, Thera [Multivitamin (formulary)] 1 tab PO DAILY 5Hydroxytryptophan(Oxitriptan) [5-Htp] 200 mg PO HS Theronate(Unknown Dose) 1 dose PO BID Fiber (Unknown Dose) 1 dose PO QAM Force Factor Prostate 400 mg PO HS Nattokinase(Unknown Dose) 1 dose PO QAM Acetaminphen(Unknown Dose) 1 dose PO DIRECTED PRN PRN Reason: Pain carvediloL [Coreg] 12.5 mg PO BID amLODIPine [Norvasc] 10 mg PO QAM Atorvastatin [Lipitor] 10 mg PO HS Glucosamine-Chondr 500-400Mg 2 tab PO BID Cholecalciferol [Vitamin D3 (125 Mcg = 5000 Iu)] 5,000 mcg PO QAM Krill Oil 500 mg PO QAM Ascorbic Acid [Vitamin C] 500 mg PO QAM Montelukast [Singulair] 10 mg PO HS Melatonin 10 mg PO HS Aspirin EC [Ecotrin Low Dose] 81 mg PO QAM glipiZIDE [Glucotrol] 5 mg PO BID Vitamin K2 [Vitamin K-2] 100 mcg PO QAM Cuercetin(Unknown Dose) 1 dose PO QAM Certrazine(Unknown Dose) 1 dose PO QAM Minerals 13 In 1 1 dose PO QAM Discharge Medication List 5Hydroxytryptophan(Oxitriptan) [5-Htp] 200 mg PO HS 08/16/21 [History] Ascorbic Acid [Vitamin C] 500 mg PO QAM 08/16/21 [History] Aspirin EC [Ecotrin Low Dose] 81 mg PO QAM 08/16/21 [History] Atorvastatin [Lipitor] 10 mg PO HS 08/16/21 [History] Cholecalciferol [Vitamin D3 (125 Mcg = 5000 Iu)] 5,000 mcg PO QAM 08/16/21 [History] Glucosamine-Chondr 500-400Mg 2 tab PO BID 08/16/21 [History] Krill Oil 500 mg PO QAM 08/16/21 [History] Melatonin 10 mg PO HS 08/16/21 [History] Montelukast [Singulair] 10 mg PO HS 08/16/21 [History] Multivitamins, Thera [Multivitamin (formulary)] 1 tab PO DAILY 08/16/21 [History] Kennedy 3-6-9 1 cap PO DAILY 08/16/21 [History] Vit C/E/Zn/Coppr/Lutein/Zeaxan [Preservision Areds 2 Softgel] 1 cap PO BID 08/16/21 [History] amLODIPine [Norvasc] 10 mg PO QAM 08/16/21 [History] carvediloL [Coreg] 12.5 mg PO BID 08/16/21 [History] lisinopriL [Prinivil] 20 mg PO QAM 08/16/21 [History] metFORMIN HCL ER [Glucophage XR] 500 mg PO 1800 08/16/21 [History] Acetaminphen(Unknown Dose) 1 dose PO DIRECTED PRN 12/09/24 [History] Certrazine(Unknown Dose) 1 dose PO QAM 12/09/24 [History] Cuercetin(Unknown Dose) 1 dose PO QAM 12/09/24 [History] Fiber (Unknown Dose) 1 dose PO QAM 12/09/24 [History] Force Factor Prostate 400 mg PO HS 12/09/24 [History] Minerals 13 In 1 1 dose PO QAM 12/09/24 [History] Nattokinase(Unknown Dose) 1 dose PO QAM 12/09/24 [History] Theronate(Unknown Dose) 1 dose PO BID 12/09/24 [History] Vitamin K2 [Vitamin K-2] 100 mcg PO QAM 12/09/24 [History] glipiZIDE [Glucotrol] 5 mg PO BID 12/09/24 [History] Aspirin [Adult Low Dose Aspirin EC] 81 mg PO BID #60 tab 12/14/24 [Rx] HYDROcodone/APAP 7.5-325MG [[place] 7.5] 1 each PO Q6HR PRN #28 tab 12/14/24 [Rx] Sennosides/Docusate Sodium [Senna-S 8.6-50 mg Tablet] 2 each PO DAILY PRN #30 tablet 12/14/24 [Rx] Follow up Appointment(s)/Referral(s): [facility], [NON-STAFF] - As Needed Solo Julian PAC [PHYSICIAN [employer]] - 2 Weeks Activity/Diet/Wound Care/Special Instructions: Orthopedic Discharge Instructions: 1. Wound care and infection precautions, keep incision dry and covered while showering, no lotions, creams, moisturizers. No soaking, pools, hot tubs. Do not scrub over incision. 2. Weight-bear as tolerated with walker / cane until follow-up. 3. Ice and elevate when necessary. Do not exceed 20 minutes per hour with ice pack. 4. Utilize compression sleeve until seen at first follow up appointment. 5. Pain meds and anticoagulants per prescription. 6. Pain medication has potential to cause constipation. Increase oral fluid and fiber intake. Contact primary care provider if you have not had a bowel movement within 48 hours after discharge. 7. No anti-inflammatory medication until discussed at first post operative visit, this including Motrin, Aleve, Mobic, Diclofenac. 8. Follow up in office at 2 weeks postop with Jerman Julian PA-C/Yonny Benson PA-C 9. Follow up with your primary care doctor 7-10 days after discharge. 10. Contact [facility] with any questions, . Wound care instructions: 1. Okay to remove surgical dressing as 12/22/2024 2. Okay to shower directly over the incision after removal of dressing Discharge Disposition: HOME WITH HOME HEALTH SERVICES
[2024-12-14 13:00] LABS: Glucose,Whole Blood 153 mg/dL (70-110)
[2024-12-14] MEDS: VIT A,C & E-LUTEIN-MINERALS 1 EACH TAB PO SCH (13:02)
[2024-12-14] MEDS: lisinopriL 20 MG TAB PO SCH (13:02)
[2024-12-14] MEDS ORDERED: ATORVASTATIN 10 MG TAB PO SCH (21:00)
[2024-12-15] MEDS ORDERED: NON FORMULARY DRUG (Aspirin Ec 81 MG Tablet) PO SCH (09:00)
[2024-12-15] MEDS ORDERED: amLODIPine 10 MG TAB PO SCH (09:00)
== END 2024-12-14 14:20 | disposition home health service (06) ==
LOC: OR 05:39 → 4SSUR 09:29 → OR 12-14 14:20
PROVIDERS: ATTEND Orthopaedic Surgery
DX: M16.12 Unilateral primary osteoarthritis, left hip (principal); E11.9 Type 2 diabetes mellitus without complications; E78.5 Hyperlipidemia, unspecified; G89.18 Other acute postprocedural pain; I10 Essential (primary) hypertension; I25.10 Atherosclerotic heart disease of native coronary artery without angina pectoris; Z79.84 Long term (current) use of oral hypoglycemic drugs; Z95.5 Presence of coronary angioplasty implant and graft; Z79.82 Long term (current) use of aspirin; Z79.899 Other long term (current) drug therapy
CPT/HCPCS: 27130; 97161; 64473; 86900; 86901; 85025; 86850; 83036; 73501; C1776; J2250; J0690 ×2; J2405; J1171